=== PATIENT | female | born 1970 | race Caucasian/White ===

== ENCOUNTER 2020-09-14 07:18 | Day surgery (SDC) | payer MEDICAID ==
[2020-09-07 17:07] LABS: BASOPHILS # (AUTO) 0.1 X10'3 (0-0.2); BASOPHILS % (AUTO) 1.3 % (0-1); EOSINOPHILS # (AUTO) 0.3 X10'3 (0-0.9); EOSINOPHILS % (AUTO) 3.1 % (0-6); HEMATOCRIT 38.6 % (35.0-45.0); HEMOGLOBIN 12.5 g/dl (12.0-16.0); LYMPHOCYTES # (AUTO) 3.4 X10'3 (1.1-4.8); LYMPHOCYTES % (AUTO) 38.4 % (21-51); MEAN CORPUSCULAR HEMOGLOBIN 26.5 PG (27.0-31.0); MEAN CORPUSCULAR HGB CONC 32.5 g/dL (33.0-36.5); MEAN CORPUSCULAR VOLUME 81.8 FL (78-98); MEAN PLATELET VOLUME 8.5 FL (7.4-10.4); MONOCYTES # (AUTO) 0.7 X10'3 (0-0.9); MONOCYTES % (AUTO) 7.5 % (2-12); NEUTROPHILS # (AUTO) 4.4 X10'3 (1.8-7.7); NEUTROPHILS % (AUTO) 49.7 % (42-75); PLATELET COUNT 345 X10'3 (140-440); RED BLOOD COUNT 4.72 X10'6 (4.20-5.60); RED CELL DISTRIBUTION WIDTH 14.5 % (11.5-14.5); WHITE BLOOD COUNT 8.8 X10'3 (4.5-11.0)
[2020-09-07 17:09] LABS: PARTIAL THROMBOPLASTIN TIME 27 SECONDS (22-32)
[2020-09-07 17:22] LABS: ALANINE AMINOTRANSFERASE 26 U/L (12-78); ALBUMIN 3.8 G/DL (3.4-5.0); ALBUMIN/GLOBULIN RATIO 1.2 (1.1-1.5); ALKALINE PHOSPHATASE 84 IU/L (46-116); ANION GAP 9 (8-16); ASPARTATE AMINO TRANSFERASE 19 U/L (10-37); BILIRUBIN,TOTAL 0.2 MG/DL (0.1-1.0); BLOOD UREA NITROGEN 9 MG/DL (7-18); BUN/CREATININE RATIO 11.3 (6.6-38.0); CALCIUM 9.3 MG/DL (8.5-10.1); CHLORIDE 108 MMOL/L (99-107); GLUCOSE 82 MG/DL (70-104); SODIUM 144 MMOL/L (135-145); TOTAL CARBON DIOXIDE 27.1 MMOL/L (24-32); TOTAL PROTEIN 6.9 G/DL (6.4-8.2); eGFR 77 ML/MIN
[~2020-09-14] VITALS: Ht 154.9 cm; Wt 54.8 kg
[2020-09-14] VITALS (11 sets, daily range): BP systolic 92–125; BP diastolic 62–89
[~2020-09-14 07:18] MED LIST: ALBU18HF2 IH; ASPI-611 PO; BACL10TA PO; BISA-155 PO; BUDE10.2 INH; CETI10TA14 PO; DIAZ5TAB4 PO; FIBER PO; GABA-530 PO; IRON PO; MECL25TA3 PO; MULT-1179 PO; PANT40TA54 PO; PROP40TA7 PO; VITAMIN B 12 PO; VITAMIN D3 PO
[2020-09-14] MEDS ORDERED: diphenhydrAMINE 25mg capsule PO PRN (07:45)
[2020-09-14] MEDS ORDERED: nitroGLYCERIN 0.4mg SUBLingual tab SL PRN ×2 (07:45→10:55)
[2020-09-14] MEDS ORDERED: LORazepam 0.5 MG tablet PO PRN (07:45)
[2020-09-14] MEDS ORDERED: normal saline 1,000 ML IV SCH (07:45)
[2020-09-14] MEDS ORDERED: NITR0.4T48 (07:53)
[2020-09-14] MEDS ORDERED: TIOT4MIS5 PO (07:53)
[2020-09-14] MEDS ORDERED: FLUT15.845 BOTHNARES (07:53)
[2020-09-14] MEDS ORDERED: LOP25T PO (07:53)
[2020-09-14] MEDS ORDERED: ZET10T PO (07:53)
[2020-09-14] MEDS ORDERED: fentaNYL/PF 50MCG/1 ML 2ML syringe ONE (09:25)
[2020-09-14] MEDS ORDERED: LIDOcaine 1% (10mg/ml)w/preservative injection 20ml MDV ONE (09:25)
[2020-09-14] MEDS ORDERED: midazolam 1 mg/ML 2ml injection ONE (09:25)
[2020-09-14] MEDS ORDERED: iohexol 350MG/ML 100ml bottle IV ONE (09:26)
[2020-09-14] MEDS ORDERED: iohexol 350 MG/ML 50ML vial IV ONE (09:26)
[2020-09-14] MEDS ORDERED: nitroGLYCERIN-Tridil 50MG/D5W 250 ML IV ONE (10:13)
[2020-09-14] MEDS ORDERED: normal saline 1000ml 1,000 ML IV SCH (10:50)
[2020-09-14] MEDS ORDERED: ondansetron/PF 4mg/2ml inj IV PRN (10:50)
[2020-09-14] MEDS ORDERED: HYDROcodone/acetaminophen 5mg/325mg tablet PO PRN (10:55)
[2020-09-14] MEDS ORDERED: OXAZEpam 15mg capsule PO PRN (10:55)
[2020-09-14] MEDS ORDERED: proCHLORperazine 10 MG/2 ml inj IV PRN (10:55)
[2020-09-14] MEDS: HYDROcodone/acetaminophen 10/325mg tab PO PRN ×2 (11:02→16:05)
== END 2020-09-14 17:00 | disposition home or self-care (01) ==
LOC: SSTAY O 07:18
PROVIDERS: ATTEND Internal Medicine Cardiovascular Disease
DX: R94.39 Abnormal result of other cardiovascular function study (principal); I25.10 Atherosclerotic heart disease of native coronary artery without angina pectoris; I10 Essential (primary) hypertension; E78.5 Hyperlipidemia, unspecified; F17.210 Nicotine dependence, cigarettes, uncomplicated; Z88.2 Allergy status to sulfonamides; Z88.8 Allergy status to other drugs, medicaments and biological substances; Z88.0 Allergy status to penicillin; Z90.710 Acquired absence of both cervix and uterus; Z90.721 Acquired absence of ovaries, unilateral
CPT/HCPCS: 36415; 71046; 80053; 82948; 85025; 85610; 85730; 93458; 99152; C1760; C1769; J1644; J2001; J2250; J3010; J7030; Q0163; Q9967; A4620; A6258; J3490